=== PATIENT | male | born 1980 | race Caucasian/White ===

== ENCOUNTER 2017-11-13 10:55 | Emergency (ER) | payer OTHER ==
[2017-11-13 11:04] VITALS: PULSE 88
[2017-11-13 11:18] VITALS: BP 136/67; TEMP 97.8; BMI 28.0
[2017-11-13] MEDS ORDERED: IBUPROFEN 400 MG TABLET (FP) PO ONE ×2 (11:41→11:49)
--- NOTE | 2017-11-13 11:41 | PDOC ---
History of Present Illness - General Chief Complaint: Injury Stated Complaint: RT LEG/ KNEE PAIN Time Seen by Provider: 11/13/17 11:16 History Source: Patient Exam Limitations: No Limitations - History of Present Illness Initial Comments: 11/13/17 12:29 Patient is a 37-year-old male with no past medical history who presents to the emergency department today for right knee pain. Patient states he was at work when he slipped backwards on uneven ground and felt his knee twist. He states that he heard a pop. He now states that the knee hurts on the inside. He states that he feels like he felt something "move". Denies numbness and tingling to the extremity, weakness, falling. States that the knee hurts the most when he tries to walk. Past History - Travel Traveled outside of the country in the last 30 days: No Close contact w/someone who was outside of country & ill: No - Past Medical History Allergies/Adverse Reactions: Allergies Allergy/AdvReac Type Severity Reaction Status Date / Time No Known Allergies Allergy Verified 11/13/17 10:56 Home Medications: Ambulatory Orders Ibuprofen 800 mg PO TID #30 tablet 11/13/17 COPD: No - Immunization History Immunization Up to Date: Yes - Suicide/Smoking/Psychosocial Hx Smoking History: Never smoked Review of Systems - Review of Systems Able to Perform ROS?: Yes Comments:: 11/13/17 12:29 CONSTITUTIONAL: Absent: fever, chills, diaphoresis, generalized weakness, malaise, loss of appetite HEENT: Absent: rhinorrhea, nasal congestion, throat pain, throat swelling, difficulty swallowing, mouth swelling, ear pain, eye pain, visual Changes CARDIOVASCULAR: Absent: chest pain, loss of consciousness, palpitations, irregular heart rate, peripheral edema RESPIRATORY: Absent: cough, shortness of breath, dyspnea with exertion, orthopnea, wheezing, stridor, hemoptysis GASTROINTESTINAL: Absent: abdominal pain, abdominal distension, nausea, vomiting, diarrhea, constipation, melena, hematochezia GENITOURINARY: Absent: dysuria, frequency, urgency, hesitancy, hematuria, flank pain, genital pain MUSCULOSKELETAL: Absent: myalgia, arthralgia, joint swelling SKIN: Absent: rash, itching, pallor HEMATOLOGIC/IMMUNOLOGIC: Absent: easy bleeding, easy bruising, lymphadenopathy, frequent infections ENDOCRINE: Absent: unexplained weight gain, unexplained weight loss, heat intolerance, cold intolerance NEUROLOGIC: Absent: headache, focal weakness or paresthesias, dizziness, unsteady gait, seizure, mental status changes, bladder or bowel incontinence PSYCHIATRIC: Absent: anxiety, depression, suicidal or homicidal ideation, hallucinations. Is the patient limited Hebrew proficient: No *Physical Exam - Vital Signs Last Vital Signs Temp Pulse Resp BP Pulse Ox 97.8 F 88 18 136/67 98 11/13/17 10:57 11/13/17 10:57 11/13/17 10:57 11/13/17 10:57 11/13/17 10:57 *DC/Admit/Observation/Transfer Diagnosis at time of Disposition: Right knee pain Qualifiers: Chronicity: acute Qualified Code(s): M25.561 - Pain in right knee - Discharge Dispostion Disposition: HOME Condition at time of disposition: Good Decision to Admit order: No - Prescriptions Prescriptions: Ibuprofen 800 mg PO TID #30 tablet - Referrals Referrals: Ernesto Hurtado MD [Staff Physician] - - Patient Instructions Printed Discharge Instructions: DI for Knee Pain Additional Instructions: Your x-rays negative for fracture today. He most likely injured/sprained a ligament in your knee. Please wear the knee immobilizer for support of the knee. Weight-bear as tolerated. He may take Motrin and she milligrams every 8 hours as needed for pain. Please keep the knee elevated and ice to help reduce swelling. Follow-up with orthopedics next week. Referral has been provided. Return to the emergency department if you have worsening pain, numbness and tingling down the extremity, weakness, or if you have any changes in your symptoms. - Post Discharge Activity Forms/Work/School Notes: Back to Work
== END 2017-11-13 12:32 | disposition home or self-care (01) ==
LOC: JERFT 10:55
PROC: 2W3QX1Z Immobilization of Right Lower Leg using Splint (ICD-10-PCS; principal; 2017-11-13)
DX: M25.561 Pain in right knee (principal); W18.39XA Other fall on same level, initial encounter; Y93.89 Activity, other specified; Y92.9 Unspecified place or not applicable; Y99.0 Civilian activity done for income or pay
CPT/HCPCS: 73562-TC-RT-FY; 99281-25